=== PATIENT | male | born 1965 | race Caucasian/White ===

== ENCOUNTER 2018-01-24 12:39 | Emergency (ER) | END 2018-01-24 14:58 | disposition home or self-care (01) ==

== ENCOUNTER → 2018-07-01 | Outpatient (CLI) | END | disposition home or self-care (01) ==

== ENCOUNTER → 2018-07-09 | Outpatient (CLI) | END | disposition home or self-care (01) ==

== ENCOUNTER → 2018-09-20 | Outpatient (CLI) | payer BC, OTHER ==
[~2018-09-20] MED LIST: ALPR1TAB7 PO; CLIN300C10 PO; DULO60CA59 PO; ELVI1TAB2 PO; EZET10TA31 PO; FENO200 PO; GABA300C16 PO; NIAC500T92 PO; PROP20TA4 PO; QUET100T PO
[2018-09-20] MEDS: METOPROLOL 5 MG INJ ONE ×2 (12:16→13:17)
[2018-09-20] MEDS: IOHEXOL 100 ML ONE (12:55)
[2018-09-20] MEDS: SOD CHLORIDE 0.9% 100 ML ONE (12:55)
--- NOTE | 2018-09-20 12:56 | NUR ---
Procedure Ordered:CTA CORONARY Reason for Exam Today:CHEST PAIN Previous Exams: Allergies:NKDA Current Medications Taken: Glucophage ( ) Metformin ( ) Previous reaction to contrast media: Yes ( ) No (X ) : Yes ( ) No ( X) Asthma: Yes ( ) No ( X) Diabetes: Yes ( ) No ( X) Myeloma: Yes ( ) No (X ) Heart Disease: Yes ( X) No ( ) Cardiac Disease: Yes ( X) No ( ) Kidney Disease: Yes ( ) No (X ) Vascular Disease: Yes ( ) No ( X) Patient Teaching done: Yes ( ) No ( ) Binder And Wrapper Packer Used: Yes ( ) No ( ) Name of Binder And Wrapper Packer: Language Used: As part of the test requested by your doctor, contrast media may be injected into your vein while the x-rays are being taken. Occasionally, reactions from IV contrast may occur. The physician and staff of this hospital are trained to treat these reactions. Select the type of Contrast that will be given to patient: Isovue 300 ( ) Isovue 370 ( ) Visipaque ( ) Cystografin ( ) OMNIPAQUE 350 (X) Gastrographin ( ) Redi-cat ( ) Volumen ( ) Amount of contrast to be given: 100CC IV (X ) PO ( ) Date given:09/20/18 Lab Values: BUN: 16 Creatinine:1.05 Reason why contrast cannot be given: Location of patient pre-procedure:OUTPATIENT WAITING ROOM Location of patient post procedure:HOME PT TOLERATED IV CONTRAST INJECTION WELL
[2018-09-20] MEDS: NITROGLYCERIN AEROSOL (4.9 GM) ONE (13:17)
== END | disposition home or self-care (01) ==
LOC: LAB 10:23
PROVIDERS: ATTEND Internal Medicine Interventional Cardiology
DX: R94.39 Abnormal result of other cardiovascular function study (principal); R07.9 Chest pain, unspecified
CPT/HCPCS: 75571; 75574; 80048; Q9967

== ENCOUNTER → 2018-10-01 | Outpatient (CLI) | payer OTHER ==
--- NOTE | 2018-10-01 15:26 | HKNOTE ---
DATE OF SERVICE: CHIEF COMPLAINT: Right hip pain. HISTORY OF PRESENT ILLNESS: Mr. Christensen is a 53-year-old male with right hip trochanteric bursitis. He is here today for his right hip steroid injection. PHYSICAL EXAMINATION: Right hip: Tender over the greater trochanter of 120 degrees of hip flexion, 30 degrees of internal rotation, 50 degrees of external rotation, 40 degrees of abduction. DIAGNOSIS: A 53-year-old male with right hip greater trochanteric bursitis. PLAN: After obtaining consent, the right hip was prepped and draped in the usual sterile fashion. A mixture of 1 mL of Kenalog along with 3 mL of lidocaine was instilled at the point of maximal tender ness. There were no complications. He tolerated the procedure well. He was instructed to ice the r ight hip. He will follow up in 6 months for reevaluation. Dictated By: NEGRO GARCIA/EDGAR Conf#: [id number] DID#: [id number]
== END | disposition home or self-care (01) ==
LOC: HKI 13:15
PROVIDERS: ATTEND Orthopaedic Surgery Adult Reconstructive Orthopaedic Surgery
DX: M70.61 Trochanteric bursitis, right hip (principal)
CPT/HCPCS: 20610; G0463